=== PATIENT | female | born 1970 | race Caucasian/White ===

== ENCOUNTER 2017-10-02 00:20 | Inpatient (IN) | payer OTHER ==
[~2017-10-02] VITALS: Ht 165.1 cm; Wt 67.1 kg
[2017-10-02] VITALS (7 sets, daily range): BP systolic 107–128; BP diastolic 77–92; PULSE 85–109; RESP 16–18; TEMP 97.7–98; O2SAT 96–99
[~2017-10-02 00:20] MED LIST: HYDR12.57 PO; LEVO125T4 PO; LOSA50TA PO; NALOXONE HCL 0.4 MG/ML AMP IV PUSH PRN; OMEP20TA93 PO; VENL25TA PO
[2017-10-02] MEDS ORDERED: WATER IV ONE ×2 (02:00)
[2017-10-02] MEDS ORDERED: ACETYLCYSTEINE IV ONE ×6 (02:00→07:00)
[2017-10-02] MEDS ORDERED: WATE IV ONE ×4 (02:00→07:00)
[2017-10-02] MEDS ORDERED: DEXTROSE 5% IV ONE ×6 (02:00→07:00)
[2017-10-02] MEDS: SODIUM CHLOR 0.9% 1000 ML INJ 1,000 ML IV SCH ×3 (02:27→18:50)
[2017-10-02] MEDS ORDERED: ACETYLCYSTEINE INJ 3,750 MG in DEXTROSE 5% IN WATE 500 ML INJ 500 ML IV ONE ×2 (03:00)
[2017-10-02] MEDS ORDERED: diphenhydrAMINE HCL 50 MG/ML VIAL IV PUSH PRN (05:30)
[2017-10-02] MEDS: SODIUM CHLORIDE 0.9% FLUSH 10 ML FLUSH IV FLUSH PRN (06:12)
[2017-10-02] MEDS: SODIUM CHLORIDE 0.9% FLUSH 10 ML FLUSH IV FLUSH SCH ×2 (08:56→22:05)
--- NOTE | 2017-10-02 09:17 | HHI.HP ---
[facility] Primary Care Physician Unknown Admission Diagnosis elevated LFT's Diagnoses: (1) Abdominal pain Diagnosis: Principal (2) Elevated LFTs Diagnosis: Principal Chief Complaint: abdominal pain Travel History International Travel<30 Days: No Contact w/Intl Traveler <30 Da: No Traveled to Known Affected Are: No History of Present Illness patient is a 46 y/o female with history of gastritis, hypertension, hypothyroidism who presented to ER with abdominal pain. the pain is epigastric and moderate in intensity. pain was associated with nausea and several episodes of emesis yesterday. she says that she had some shoulder pain few weeks ago and she started to take tylenol, few tablets more or less as a regular basis, since then. she says that she tried some nexium with no significant relief. she also has a history of chonic alcohol abuse and she drinks as a daily basis. Review of Systems Constitutional: DENIES: Fever, Weight loss, Chills, Night Sweats Eyes: DENIES: Blurred vision, Diplopia, Vision loss, Double Vision Ears, nose, mouth, throat: DENIES: Tinnitus, Vertigo, Throat pain, Epistaxis Respiratory: DENIES: Apneas, Cough, Snoring, Wheezing, Hemoptysis, Sputum production, Shortness of breath Cardiovascular: DENIES: Chest pain, Palpitations, Syncope, Dyspnea on Exertion , PND, Lower Extremity Edema, Orthopnea, Claudication Gastrointestinal: COMPLAINS OF: Abdominal pain, Nausea, Vomiting, DENIES: Black stools, Bloody stools, Constipation, Diarrhea, Difficulty Swallowing, Anorexia Genitourinary: DENIES: Urinary frequency, Urgency, Hematuria, Dysuria Musculoskeletal: DENIES: Joint pain, Muscle aches, Stiffness, Joint Swelling Integumentary: DENIES: Rash Neurologic: DENIES: Abnormal gait, Headache, Localized weakness, Paresthesias, Seizures, Speech Problems, Tremor, Poor Balance Psychiatric: DENIES: Anxiety, Confusion, Mood changes, Depression, Hallucinations, Agitation, Suicidal Ideation, Homicidal Ideation, Delusions Past Family Social History Past Medical History hypothyroidism hypertension gastritis Past Surgical History gastric bypass surgery. breast implant. Reported Medications levothyroxine losartan HCTZ effexor Allergies: Coded Allergies: neomycin (Unverified Allergy, Severe, Swelling, 10/01/17) Active Ordered Medications Current Medications Sodium Chloride 1,000 ml @ 100 mls/hr Q10H IV Last administered on 10/02/17 02:27; Start 10/01/17 at 22:50 Sodium Chloride (NS Flush) 2 ml UNSCH PRN IV FLUSH FLUSH AFTER USING IV ACCESS Last administered on 10/02/17 06:12; Start 10/01/17 at 23:00 Sodium Chloride (NS Flush) 2 ml BID IV FLUSH ; Start 10/02/17 at 09:00 Naloxone HCl (Narcan Inj) 0.4 mg UNSCH PRN IV PUSH SEE LABEL COMMENTS; Start 10/01/17 at 23:00 Acetylcysteine 41169 mg/Dextrose 256 ml @ 200 mls/hr ONCE ONCE IV Last administered on 10/02/17 02:24; Start 10/02/17 at 02:00; Stop 10/02/17 at 03:16 ; Status DC Acetylcysteine 3750 mg/Dextrose 518.75 ml @ 125 mls/ hr ONCE ONCE IV Last administered on 10/02/17 03:57; Start 10/02/17 at 03:00; Stop 10/02/17 at 07:08 ; Status DC Acetylcysteine 7450 mg/Dextrose 1,037.25 ml @ 62.5 mls/ hr ONCE ONCE IV ; Start 10/02/17 at 02:00; Stop 10/02/17 at 02:00; Status DC Acetylcysteine 7450 mg/Dextrose 1,037.25 ml @ 62.5 mls/ hr ONCE ONCE IV ; Start 10/02/17 at 07:00; Stop 10/02/17 at 23:35 Diphenhydramine HCl (Benadryl Inj) 25 mg Q4H PRN IV PUSH itching Last administered on 10/02/17 06:12; Start 10/02/17 at 05:30 Family History not relevant to this presentation. Social History drinks daily. Physical Exam Vital Signs Vital Signs Date Time Temp Pulse Resp B/P (MAP) Pulse Ox O2 Delivery O2 Flow Rate FiO2 10/02/17 05:40 97.8 90 16 124/83 (97) 97 12/7/17 01:05 97.8 91 16 128/87 (098) 06 Physical Exam GENERAL: This is a well-nourished, well-developed patient, in no apparent distress. SKIN: No rashes, ecchymoses or lesions. Cool and dry. HEAD: Atraumatic. Normocephalic. No temporal or scalp tenderness. EYES: Pupils equal round and reactive. Extraocular motions intact. No scleral icterus. No injection or drainage. ENT: Nose without bleeding, purulent drainage or septal hematoma. Throat without erythema, tonsillar hypertrophy or exudate. Uvula midline. Airway patent. NECK: Trachea midline. No JVD or lymphadenopathy. Supple, nontender, no meningeal signs. CARDIOVASCULAR: Regular rate and rhythm without murmurs, gallops, or rubs. RESPIRATORY: Clear to auscultation. Breath sounds equal bilaterally. No wheezes , rales, or rhonchi. GASTROINTESTINAL: Abdomen soft, non-tender, nondistended. No hepato-splenomegaly , or palpable masses. No guarding. MUSCULOSKELETAL: Extremities without clubbing, cyanosis, or edema. No joint tenderness, effusion, or edema noted. No calf tenderness. Negative Homans sign bilaterally. NEUROLOGICAL: Awake and alert. Cranial nerves II through XII intact. Motor and sensory grossly within normal limits. Five out of 5 muscle strength in all muscle groups. Normal speech. Caprini VTE Risk Assessment Caprini VTE Risk Assessment: Mod/High Risk (score >= 2) Caprini Risk Assessment Model Point Value = 1 Point Value = 2 Point Value = 3 Point Value = 5 Age 41-60 Minor surgery BMI > 25 kg/m2 Swollen legs Varicose veins or History of unexplained or recurrent spontaneous Oral contraceptives or hormone replacement Sepsis (< 1 month) Serious lung disease, including pneumonia (< 1 month) Abnormal pulmonary function Acute myocardial infarction Congestive heart failure (< 1 month) History of inflammatory bowel disease Medical patient at bed rest Age 61-74 Arthroscopic surgery Major open surgery (> 45 min) Laparoscopic surgery (> 45 min) Malignancy Confined to bed (> 72 hours) Immobilizing plaster cast Central venous access Age >= 75 History of VTE Family history of VTE Factor V Leiden Prothrombin [id number] Lupus anticoagulant Anticardiolipin antibodies Elevated serum homocysteine Heparin-induced thrombocytopenia Other congenital or acquired thrombophilia Stroke (< 1 month) Elective arthroplasty Hip, pelvis, or leg fracture Acute spinal cord injury (< 1 month) Prophylaxis Regimen Total Risk Factor Score Risk Level Prophylaxis Regimen 0-1 Low Early ambulation 2 Moderate Order ONE of the following: *Sequential Compression Device (SCD) *Heparin 5000 units SQ BID 3-4 Higher Order ONE of the following medications: *Heparin 5000 units SQ TID *Enoxaparin/Lovenox 40 mg SQ daily (WT < 150 kg, CrCl > 30 mL/min) *Enoxaparin/Lovenox 30 mg SQ daily (WT < 150 kg, CrCl > 10-29 mL/min) *Enoxaparin/Lovenox 30 mg SQ BID (WT < 150 kg, CrCl > 30 mL/min) AND/OR *Sequential Compression Device (SCD) 5 or more Highest Order ONE of the following medications: *Heparin 5000 units SQ TID (Preferred with Epidurals) *Enoxaparin/Lovenox 40 mg SQ daily (WT < 150 kg, CrCl > 30 mL/min) *Enoxaparin/Lovenox 30 mg SQ daily (WT < 150 kg, CrCl > 10-29 mL/min) *Enoxaparin/Lovenox 30 mg SQ BID (WT < 150 kg, CrCl > 30 mL/min) AND *Sequential Compression Device (SCD) Assessment and Plan Assessment and Plan A/P - elevated LFT's/ epigastric pain received acetylcysteine- will monitor LFT's- check hepatitis panel and consult GI -hypertension; resume home meds- continue to monitor and adjust the regimen as needed. -pancytopenia; likely due to alcohol- will monitor -chronic alcohol abuse; start on CIWA protocol, multivitamin and thiamine -hypothyroidism; resume Levothyroxine Discussed Condition With the patient. Physician Certification 2 Midnight Certification Type: Admission for Inpatient Services Order for Inpatient Services The services are ordered in accordance with Medicare regulations or non- Medicare payer requirements, as applicable. In the case of services not specified as inpatient-only, they are appropriately provided as inpatient services in accordance with the 2-midnight benchmark. Estimated LOS (days): 2 days is the estimated time the patient will need to remain in the hospital, assuming treatment plan goals are met and no additional complications. Post-Hospital Plan: Home Problem Qualifiers (1) Abdominal pain: Qualified Codes: R10.13 - Epigastric pain Roxana Rock MD Oct 02, 2017 09:17
[2017-10-02] MEDS ORDERED: FLUMAZENIL 0.5 MG/5 ML VIAL IV PUSH PRN (09:30)
[2017-10-02] MEDS ORDERED: LORazepam 2 MG/ML VIAL IV PUSH PRN ×4 (09:30)
[2017-10-02] MEDS ORDERED: LORazepam 1 MG TAB PO PRN (09:30)
[2017-10-02] MEDS ORDERED: LORazepam 2 MG TAB PO PRN (09:30)
--- NOTE | 2017-10-02 10:30 | PD.CONS ---
HPI History of Present Illness This is a 46 year old who presented to the emergency department yesterday with complaints of N/V/epigastric abdominal pain. Pt reports vomiting has been constant for the three days prior to admission, but has been intermittent for the past month. Episodes worse in the morning and at night on an empty stomach. Epigastric pain has been constant for the past month, she is scheduled for an EGD with Dr. Villanueva in [place] on Oct 10 to evaluate cause of pain. Pt has known history of gastritis, has been taking Omeprazole OTC with no relief of symptoms. GI has been consulted due to patients significant elevation of liver enzymes. Pt reports she has been told a year ago that her liver enzymes were mildly elevated and that she should cut back on her drinking. Denies history of hepatocellular disease or cirrhosis. Pt reports she has been drinking 3-4 glasses a wine a night for the past three years. She has also been taking four- 500mg tablets of Tylenol every four hours for the past month for left sided shoulder pain that she has been told is due to a pinched nerve. She denies taking any herbals or supplements. Denies history of hepatitis, IV drug use, recent travel. She does report history of pancreatitis, one episode, approx 6 years ago after having gastric bypass surgery. Pt reports she has chronic diarrhea, fecal urgency after eating, and incontinence. Has noticed BRB in her stool, isolated episode, last week. Denies unintentional weight loss. (Tata Capellan) PFSH Past Medical History Hypothyroidism Hypertension Gastritis Pancreatitis ETOH abuse Past Surgical History Gastric bypass surgery Breast augmentation (Tata Capellan) Coded Allergies: neomycin (Unverified Allergy, Severe, Swelling, 10/01/17) Family History not relevant to this presentation. Social History 3-4 glasses of white wine daily for the past 3 years Quit smoking a week ago, was smoking E-cigarettes Denies illicit drug use (Tata Capellan) Review of Systems Gastrointestinal: COMPLAINS OF: Abdominal pain, Bloody stools, Diarrhea, Nausea , Vomiting, Swelling of Abdomen, DENIES: Black stools, Constipation, Heartburn, Hematemesis (Tata Capellan) GI Exam Vitals I&O Vital Signs Date Time Temp Pulse Resp B/P (MAP) Pulse Ox O2 Delivery O2 Flow Rate FiO2 10/02/17 08:00 97.7 109 18 122/83 (96) 99 10/02/17 05:40 97.8 90 16 124/83 (97) 97 10/02/17 01:05 97.8 91 16 128/87 (101) 97 I/O 10/01/17 10/01/17 10/01/17 10/02/17 10/02/17 10/02/17 07:00 15:00 23:00 07:00 15:00 23:00 Intake Total 250 ml Balance 250 ml Intake IV Total 250 ml Physical Examination HEENT: Normocephalic; atraumatic; no jaundice. CHEST: CTA CARDIAC: RRR ABDOMEN: Soft, nondistended, epigastric tenderness; bowel sounds active x 4. EXTREMITIES: No clubbing, cyanosis, or edema. SKIN: Normal; no rash; no jaundice. HELMET COVERER: No focal deficits; alert and oriented times three. (Tata Capellan) Assessment and Plan Plan Assessment Elevated LFTs- likely secondary to ETOH abuse and acetaminophen toxicity- CT abdomen/pelvis W/IV contrast (10/01) --> Markedly enlarged fatty liver. Tiny 3mm upper pole left renal cyst. No acute inflammatory process. ALT-625 AST-1192 Alk phos-403 Tbili-1.4- given history and labs would suspect acute hepatitis related to ETOH and acetaminophen use- pt receiving Acetylcysteine drip s/p bolus, repeat labs are pending. Ammonia-57 PT 10.6. May consider steroids if repeat labs not trending down. Will order liver work up to rule out other causes. Lactulose. Epigastric pain- History of gastritis- Plan for EGD tomorrow. PPI Diarrhea- chronic, with fecal urgency and incontinence- BRB in stool, one episode last week. Stool studies. Colonoscopy tomorrow. Plan - Continue Acetylcysteine - Lactulose 30mL BID - EGD/colon tomorrow - Obtain consents - Clear liquid diet today - NPO after MN - GoLYTELY prep - Monitor labs - Supportive care - Further recommendations to follow based on results of above Pt seen and examined by myself and Dr. Izquierdo and this note is written on his behalf (Tata Capellan) Physician Comments Seen and examined with ELAYNE, liver ward ordered. Egd/colonoscopy planned for tomorrow. Will follow, thank you (Mildred Izquierdo MD) Tata Capellan Oct 02, 2017 10:30 Mildred Izquierdo MD Oct 02, 2017 17:07
[2017-10-02 10:35] LABS: AUTOMATED NEUTROPHIL # 1.4 TH/MM3 (1.8-7.7); BASOPHIL % 1.3 % (0.0-2.0); EOSINOPHIL % 0.7 % (0.0-4.0); HEMATOCRIT 28.6 % (35.0-46.0); LYMPH % 30.3 % (9.0-44.0); LYMPHOCYTE # 0.7 TH/MM3 (1.0-4.8); MEAN CELL VOLUME 98.7 FL (80.0-100.0); MEAN CORPUSCULAR HEMOGLOBIN 33.5 PG (27.0-34.0); MEAN CORPUSCULAR HGB CONC 33.9 % (32.0-36.0); MONO % 9.1 % (0.0-8.0); NEUT % 58.6 % (16.0-70.0); PLATELET COUNT 76 TH/MM3 (150-450); RED BLOOD COUNT 2.89 MIL/MM3 (4.00-5.30); WHITE BLOOD COUNT 2.4 TH/MM3 (4.0-11.0)
[2017-10-02 10:37] LABS: INTERNATIONAL NORMALIZED RATIO 1.1 RATIO; PROTHROMBIN TIME - PATIENT 11.6 SEC (9.8-11.6)
[2017-10-02 10:45] LABS: HEMO FLAGS AUTO DIFF
[2017-10-02 11:02] LABS: ALT (GPT) 505 U/L (10-53); ANION GAP 9 MEQ/L (5-15); AST (GOT) 768 U/L (15-37); BLOOD UREA NITROGEN 8 MG/DL (7-18); CHLORIDE 102 MEQ/L (98-107); GLOMERULAR FILTRATION RATE 52 ML/MIN (>89); POTASSIUM 3.5 MEQ/L (3.5-5.1); SODIUM (NA) 139 MEQ/L (136-145)
[2017-10-02 11:05] LABS: ALKALINE PHOSPHATASE 334 U/L (45-117); TOTAL BILIRUBIN ADULT 1.2 MG/DL (0.2-1.0)
[2017-10-02 11:49] LABS: SCAN/DIFF AUTO DIFF CONFIRMED
[2017-10-02] MEDS ORDERED: ALUMINUM/MAGNESIUM/SIMETH 30 ML CUP PO PRN (14:45)
[2017-10-02] MEDS ORDERED: PEG (High)/E-LYTE SOLN 4000 ML BTL PO ONE (16:00)
[2017-10-02 19:40] LABS: TRANSFERRIN IRON PROFILE 152 MG/DL (200-360)
[2017-10-02 19:49] LABS: C. DIFF EPI 027 PRESUMPTIVE NEGATIVE (NEGATIVE)
[2017-10-02 19:54] LABS: FERRITIN 2830 NG/ML (8-252)
[2017-10-03] VITALS: BP 117/81; PULSE 91; RESP 16; TEMP 97.9; O2SAT 99
[2017-10-03] MEDS: LEVOTHYROXINE SODIUM 125 MCG TAB PO SCH (02:45)
[2017-10-03 04:00] VITALS: BP 121/75; PULSE 81; RESP 18; TEMP 97.8; O2SAT 99
[2017-10-03] MEDS ORDERED: MORPHINE SULFATE 2 MG/ML INJ IV PUSH PRN (04:30)
[2017-10-03] MEDS: SODIUM CHLOR 0.9% 1000 ML INJ 1,000 ML IV SCH ×3 (04:43→23:53)
[2017-10-03 08:00] VITALS: BP 115/79; PULSE 86; RESP 18; TEMP 98.2; O2SAT 97
--- NOTE | 2017-10-03 08:10 | HHI.PR ---
Subjective Remarks in no acute distress. abdominal pain is better. d/w the RN and no acute issues over night. awaiting endoscopy. Objective Vitals Vital Signs Date Time Temp Pulse Resp B/P (MAP) Pulse Ox O2 Delivery O2 Flow Rate FiO2 10/03/17 04:00 97.8 81 18 121/75 (90) 99 10/03/17 00:00 97.9 91 16 117/81 (93) 99 10/02/17 20:00 98.0 97 18 112/92 (99) 99 10/02/17 16:00 97.9 85 18 107/81 (90) 99 10/02/17 12:00 98.0 86 18 109/77 (88) 96 10/02/17 08:50 85 I/O 10/02/17 10/02/17 10/02/17 10/03/17 10/03/17 10/03/17 07:00 15:00 23:00 07:00 15:00 23:00 Intake Total 250 ml 1200 ml 960 ml 0 ml Balance 250 ml 1200 ml 960 ml 0 ml Intake Oral 1200 ml 960 ml 0 ml IV Total 250 ml # Voids 6 2 1 # Bowel Movements 6 6 2 Result Diagram: 10/02/17 1018 10/02/17 1018 Objective Remarks GENERAL: This is a well-nourished, well-developed patient, in no apparent distress. CARDIOVASCULAR: Regular rate and regular rhythm without murmurs, gallops, or rubs. RESPIRATORY: Clear to auscultation. Breath sounds equal bilaterally. No wheezes , rales, or rhonchi. GASTROINTESTINAL: Abdomen soft, non-tender, nondistended. Normal, active bowel sounds MUSCULOSKELETAL: Extremities without clubbing, cyanosis, or edema. NEURO: Alert & Oriented x4 to person, place, time, situation. Moves all ext x4 Medications and IVs Current Medications Sodium Chloride 1,000 ml @ 100 mls/hr Q10H IV Last administered on 10/02/17 02:27; Start 10/01/17 at 22:50 Sodium Chloride (NS Flush) 2 ml UNSCH PRN IV FLUSH FLUSH AFTER USING IV ACCESS Last administered on 10/02/17 06:12; Start 10/01/17 at 23:00 Sodium Chloride (NS Flush) 2 ml BID IV FLUSH ; Start 10/02/17 at 09:00 Naloxone HCl (Narcan Inj) 0.4 mg UNSCH PRN IV PUSH SEE LABEL COMMENTS; Start 10/01/17 at 23:00 Acetylcysteine 44121 mg/Dextrose 256 ml @ 200 mls/hr ONCE ONCE IV Last administered on 10/02/17 02:24; Start 10/02/17 at 02:00; Stop 10/02/17 at 03:16 ; Status DC Acetylcysteine 3750 mg/Dextrose 518.75 ml @ 125 mls/ hr ONCE ONCE IV Last administered on 10/02/17 03:57; Start 10/02/17 at 03:00; Stop 10/02/17 at 07:08 ; Status DC Acetylcysteine 7450 mg/Dextrose 1,037.25 ml @ 62.5 mls/ hr ONCE ONCE IV ; Start 10/02/17 at 02:00; Stop 10/02/17 at 02:00; Status DC Acetylcysteine 7450 mg/Dextrose 1,037.25 ml @ 62.5 mls/ hr ONCE ONCE IV Last administered on 10/02/17 08:55; Start 10/02/17 at 07:00; Stop 10/02/17 at 23:35 ; Status DC Diphenhydramine HCl (Benadryl Inj) 25 mg Q4H PRN IV PUSH itching Last administered on 10/02/17 06:12; Start 10/02/17 at 05:30 Hydrochlorothiazide (Microzide) 12.5 mg DAILY PO ; Start 10/03/17 at 09:00 Levothyroxine Sodium (Synthroid) 125 mcg DAILY@0600 PO ; Start 10/03/17 at 06:00 Losartan Potassium (Cozaar) 50 mg DAILY PO ; Start 10/03/17 at 09:00 Flumazenil (Romazicon Inj) 0.2 mg Q1M PRN IV PUSH SEE LABEL COMMENTS; Start at 09:30 Lorazepam (Ativan) 1 mg Q4H PRN PO CIWA 8 - 10; Start 10/02/17 at 09:30 Lorazepam (Ativan Inj) 1 mg Q4H PRN IV PUSH CIWA 8 - 10; Start 10/02/17 at 09: 30 Lorazepam (Ativan) 2 mg Q2H PRN PO CIWA 11-14; Start 10/02/17 at 09:30 Lorazepam (Ativan Inj) 2 mg Q2H PRN IV PUSH CIWA 11-14; Start 10/02/17 at 09:30 Lorazepam (Ativan Inj) 2 mg Q1H PRN IV PUSH CIWA 15-20; Start 10/02/17 at 09:30 Lorazepam (Ativan Inj) 2 mg Q15M PRN IV PUSH CIWA > 20; Start 10/02/17 at 09:30 Multivitamins (Theragran) 1 tab DAILY PO ; Start 10/03/17 at 09:00 Thiamine HCl (Vitamin B1) 100 mg DAILY PO ; Start 10/03/17 at 09:00 Polyethylene Glycol/ Electrolytes (Colyte Liq) 4,000 ml ONCE ONCE PO Last administered on 10/02/17 15:53; Start 10/02/17 at 16:00; Stop 10/02/17 at 16:01 ; Status DC Pantoprazole Sodium (Protonix) 40 mg DAILY PO ; Start 10/03/17 at 09:00 Lactulose (Lactulose Liq) 30 ml DAILY PO ; Start 10/03/17 at 09:00 Al Hydrox/Mg Hydrox/Simethicone (Mag-Al Plus Susp Liq) 30 ml Q6H PRN PO DYSPEPSIA Last administered on 10/02/17 15:35; Start 10/02/17 at 14:45 Morphine Sulfate (Morphine Inj) 2 mg Q3H PRN IV PUSH pain >5 Last administered on 10/03/17 04:41; Start 10/03/17 at 04:30 A/P Problem List: (1) Abdominal pain ICD Code: R10.9 - Unspecified abdominal pain (2) Elevated LFTs ICD Code: R79.89 - Other specified abnormal findings of blood chemistry Assessment and Plan A/P - elevated LFT's/ epigastric pain received acetylcysteine- will monitor LFT's- hepatitis panel negative- GI consult appreciated and plan for endoscopy today. -hypertension; resumed home meds- continue to monitor and adjust the regimen as needed. -pancytopenia; likely due to alcohol- will monitor -chronic alcohol abuse; started on CIWA protocol, multivitamin and thiamine -hypothyroidism; resume Levothyroxine Discharge Planning pending GI recommendations. Problem Qualifiers (1) Abdominal pain: Qualified Codes: R10.13 - Epigastric pain Roxana Rock MD Oct 03, 2017 08:10
[2017-10-03] MEDS ORDERED: THERTAB15 PO (08:12)
[2017-10-03] MEDS ORDERED: THIA100 PO (08:12)
[2017-10-03 08:20] LABS: ALT (GPT) 398 U/L (10-53); ANION GAP 8 MEQ/L (5-15); AST (GOT) 509 U/L (15-37); BICARBONATE 26.7 MEQ/L (21.0-32.0); BLOOD UREA NITROGEN 4 MG/DL (7-18); CHLORIDE 109 MEQ/L (98-107); GLOMERULAR FILTRATION RATE 76 ML/MIN (>89); POTASSIUM 3.4 MEQ/L (3.5-5.1); SODIUM (NA) 144 MEQ/L (136-145)
[2017-10-03 08:23] LABS: ALKALINE PHOSPHATASE 284 U/L (45-117); TOTAL BILIRUBIN ADULT 1.1 MG/DL (0.2-1.0)
[2017-10-03] MEDS: LACTULOSE SYRUP 20 GM/30 ML CUP PO SCH (09:00)
[2017-10-03] MEDS: MULTIVITAMIN TAB PO SCH (09:00)
[2017-10-03] MEDS: THIAMINE HCL 100 MG TAB PO SCH (09:00)
[2017-10-03] MEDS: PANTOPRAZOLE SOD 40 MG DELAYED RELEASE TAB PO SCH (09:00)
[2017-10-03] MEDS: HYDROCHLOROTHIAZIDE 12.5 MG CAP PO SCH (09:00)
[2017-10-03] MEDS: LOSARTAN 50 MG TAB PO SCH (09:00)
[2017-10-03] MEDS: SODIUM CHLORIDE 0.9% FLUSH 10 ML FLUSH IV FLUSH SCH ×2 (09:00→20:00)
[2017-10-03 12:00] VITALS: BP 92/59; PULSE 76; RESP 18; TEMP 96.7; O2SAT 98
[2017-10-03] MEDS ORDERED: SODIUM CHLORID 0.9% 500 ML IV PRN (13:00)
[2017-10-03] MEDS ORDERED: CHLORHEXIDINE GLUCONATE 2 % 1 PACK (2 CLOTHS) TOPICAL PRN (13:00)
[2017-10-03] MEDS ORDERED: LACTATED RINGER'S 1000 ML IV PRN (13:00)
[2017-10-03] MEDS ORDERED: INSULIN HUMAN REGULAR 1,000 UNITS/10 ML VIAL SQ PRN (13:00)
[2017-10-03] MEDS ORDERED: METOPROLOL TARTRATE 25 MG TAB PO PRN (13:00)
[2017-10-03] MEDS ORDERED: POVIDONE IODINE 5% (ANTISEPSIS KIT) 4 APPLICATIONS EACH NARE PRN (13:00)
--- NOTE | 2017-10-03 13:37 | GIPROC ---
[facility] [address] [facility]. [facility], [address] EGD PROCEDURE REPORT EXAM DATE: 10/03/2017 PATIENT NAME: Karime Klein MR #: [id number] BIRTHDATE: 1970 ATTENDING: Mildred Izquierdo MD ORDER #: [id number] [employer] TEAMMATE: Rosalina Villegas and Linh Nolan STATUS: inpatient INDICATIONS: The patient is a 46 yr old female here for an EGD due to epigastric abdominal pain PROCEDURE PERFORMED: EGD, diagnostic MEDICATIONS: Per Anesthesia and None. TOPICAL ANESTHETIC: CONSENT: The patient understands the risks and benefits of the procedure and understands that these risks include, but are not limited to: sedation, allergic reaction, infection, perforation and/or bleeding. Alternative means of evaluation and treatment include, among others: physical exam, x-rays, and/or surgical intervention. The patient elects to proceed with this endoscopic procedure. medical equipment was checked for proper function. Hand hygiene and appropriate measures for infection prevention was taken. After the risks, benefits and alternatives of the procedure were thoroughly explained, Informed consent was verified, confirmed and timeout was successfully executed by the treatment team. The patient was anesthetized with topical anesthesia and the Pentax [id number] endoscope was introduced through the mouth and advanced to the second portion of the duodenum. Retroflexed views revealed no abnormalities The gastroscope was then slowly withdrawn and removed. ESOPHAGUS: The mucosa of the esophagus appeared normal. STOMACH: Gastric bypass surgery, o/w normal. DUODENUM: The duodenal mucosa appeared normal in the 2nd part of the duodenum. ADVERSE EVENTS: There were no complications. IMPRESSIONS: 1. The esophagus appeared normal 2. Gastric bypass surgery, o/w normal 3. Normal duodenal mucosa in the 2nd part of the duodenum 4. Retroflexed views revealed no abnormalities RECOMMENDATIONS: Avoid NSAIDS PATIENT CONDITION: stable DISPOSITION: Inpatient REPEAT EXAM: Return as needed for EGD Mildred Izquierdo MD eSigned: Mildred Izquierdo MD 10/03/2017 1:36 PM cc:
--- NOTE | 2017-10-03 13:39 | GIPROC ---
[facility] [address] [facility]. [facility], [address] COLONOSCOPY PROCEDURE REPORT EXAM DATE: 10/03/2017 PATIENT NAME: Karime Klein MR #: [id number] BIRTHDATE: 1970 ENDOSCOPIST: Mildred Izquierdo MD ORDER #: [id number] [employer]OM CONVEYOR OPERATOR: Rosalina Villegas and Linh Nolan STATUS: inpatient INDICATIONS: The patient is a 46 yr old female here for a colonoscopy due to abdominal pain PROCEDURE PERFORMED: Colonoscopy, incomplete MEDICATIONS: Per Anesthesia and None. PREP QUALITY: good PREP TYPE:GoLytely ESTIMATED BLOOD LOSS: None CONSENT: The patient understands the risks and benefits of the procedure and understands that these risks include, but are not limited to: sedation, allergic reaction, infection, perforation and/or bleeding. Alternative means of evaluation and treatment include, among others: physical exam, x-rays, and/or surgical intervention. The patient elects to proceed with this endoscopic procedure. medical equipment was checked for proper function. Hand hygiene and appropriate measures for infection prevention was taken. After the risks, benefits and alternatives of the procedure were thoroughly explained, Informed consent was verified, confirmed and timeout was successfully executed by the treatment team. A digital exam The Pentax [id number] endoscope was introduced through the anus and advanced to the sigmoid colon. The instrument was then slowly withdrawn as the colon was fully examined. COLON FINDINGS: Incomplete due to sigificant tortuosity of colon. There was mild diverticulosis noted in the sigmoid colon with associated angulation and tortuosity. No bleeding was noted from the diverticulosis. Retroflexed views revealed internal hemorrhoids and Retroflexed views revealed medium internal hemorrhoids The scope was then completely withdrawn from the patient and the procedure terminated. ADVERSE EVENTS: There were no complications. IMPRESSIONS: 1. Incomplete due to sigificant tortuosity of colon 2. There was mild diverticulosis noted in the sigmoid colon 3. Retroflexed views revealed internal hemorrhoids 4. Retroflexed views revealed medium internal hemorrhoids RECOMMENDATIONS: 1. Benefiber 2 tsp daily 2. Continue surveillance 3. Yearly hemoccult 4. Xray for Barium enema RECALL: Return 3 years Colonoscopy Mildred Izquierdo MD eSigned: Mildred Izquierdo MD 10/03/2017 1:39 PM cc:
[2017-10-03] MEDS ORDERED: MAGNESIUM CITRATE SOLN 300 ML BTL PO ONE ×2 (14:45→18:00)
[2017-10-03 15:13] LABS: AUTOMATED NEUTROPHIL # 1.1 TH/MM3 (1.8-7.7); BASOPHIL % 0.6 % (0.0-2.0); EOSINOPHIL % 0.8 % (0.0-4.0); HEMATOCRIT 29.5 % (35.0-46.0); HEMO FLAGS DIFF FINAL; LYMPH % 34.5 % (9.0-44.0); LYMPHOCYTE # 0.7 TH/MM3 (1.0-4.8); MEAN CORPUSCULAR HEMOGLOBIN 33.3 PG (27.0-34.0); MEAN CORPUSCULAR HGB CONC 33.3 % (32.0-36.0); NEUT % 56.1 % (16.0-70.0); PLATELET COUNT 105 TH/MM3 (150-450); RED BLOOD COUNT 2.95 MIL/MM3 (4.00-5.30); RED CELL DISTRIBUTION WIDTH 14.4 % (11.6-17.2)
[2017-10-03 16:00] VITALS: BP 116/80; PULSE 87; RESP 18; TEMP 98.4; O2SAT 100
--- NOTE | 2017-10-03 16:41 | RADRPT ---
EXAM DATE/TIME: 10/03/2017 15:01 [facility] COMPARISON: CT ABDOMEN & PELVIS W CONTRAST, October 01, 2017, 20:45. INDICATIONS : Anemia. Recent incomplete colonoscopy. Colon cancer screening. FLUORO TIME: 4.0 minutes IMAGE COUNT: CONTRAST: 1. Polibar ACB Barium Sulfate (96% w/w) MEDICAL HISTORY : diarrhea x 2 mos, nausea, vomiting SURGICAL HISTORY : gastric bypass, tummy tuck, breast implants ENCOUNTER: Initial ACUITY: 2 months PAIN SCORE: 0/10 LOCATION: Bilateral abdomen FINDINGS: A balloon tip catheter was inserted into the rectum, and air and barium was instilled under fluorosco pic control. Barium was instilled in a retrograde fashion until reaching the right colon. I was unable to fill the cecum with contrast secondary to air. The contrast was then drained and the colon was insufflated wi th room air. Multiple images were obtained and no polyp or mass is identified. Again, it is not clear if the cecum is fully visualized. There is no diverticulosis. No reflux of contrast into the termina l ileum is seen and appendix is not visualized. CONCLUSION: 1. No polyp or mass is identified within the colon. 2. Cecum is not optimally visualized but no definite abnormality is seen in this area. Allan Bills MD on October 03, 2017 at 16:34 Board Certified Radiologist. This report was verified electronically.
[2017-10-03] MEDS: BISACODYL EC 5 MG TABEC PO SCH ×2 (17:53→19:58)
[2017-10-03 20:00] VITALS: BP 120/74; PULSE 101; RESP 18; TEMP 97.8; O2SAT 97
[2017-10-04] VITALS: BP 113/84; PULSE 89; RESP 16; TEMP 98; O2SAT 99
[2017-10-04 04:00] VITALS: BP 90/62; PULSE 96; RESP 16; TEMP 97.5; O2SAT 95
[2017-10-04] MEDS: LEVOTHYROXINE SODIUM 125 MCG TAB PO SCH (04:52)
[2017-10-04 07:18] LABS: AUTOMATED NEUTROPHIL # 1.2 TH/MM3 (1.8-7.7); BASOPHIL % 0.6 % (0.0-2.0); EOSINOPHIL % 0.6 % (0.0-4.0); HEMATOCRIT 24.6 % (35.0-46.0); LYMPH % 38.3 % (9.0-44.0); LYMPHOCYTE # 0.9 TH/MM3 (1.0-4.8); MEAN CELL VOLUME 101.4 FL (80.0-100.0); MEAN CORPUSCULAR HEMOGLOBIN 34.3 PG (27.0-34.0); MEAN CORPUSCULAR HGB CONC 33.8 % (32.0-36.0); MONO % 8.8 % (0.0-8.0); NEUT % 51.7 % (16.0-70.0); PLATELET COUNT 91 TH/MM3 (150-450); RED BLOOD COUNT 2.43 MIL/MM3 (4.00-5.30); RED CELL DISTRIBUTION WIDTH 14.4 % (11.6-17.2); WHITE BLOOD COUNT 2.2 TH/MM3 (4.0-11.0)
[2017-10-04 07:27] LABS: HEMO FLAGS AUTO DIFF
[2017-10-04 07:49] LABS: BICARBONATE 25.8 MEQ/L (21.0-32.0); CALCIUM-PROTEIN CORRECTED 7.9 MG/DL (8.5-10.1); POTASSIUM 3.5 MEQ/L (3.5-5.1)
[2017-10-04 08:00] VITALS: BP 113/71; PULSE 87; RESP 18; TEMP 97; O2SAT 97
[2017-10-04 08:24] LABS: PLATELET ESTIMATE SMEAR LOW (NORMAL); PLATELET MORPHOLOGY NORMAL (NORMAL); SCAN/DIFF AUTO DIFF CONFIRMED; TARGET CELLS 1+ (NORMAL)
[2017-10-04] MEDS: MULTIVITAMIN TAB PO SCH (08:35)
[2017-10-04] MEDS: THIAMINE HCL 100 MG TAB PO SCH (08:35)
[2017-10-04] MEDS: LACTULOSE SYRUP 20 GM/30 ML CUP PO SCH (08:35)
[2017-10-04] MEDS: PANTOPRAZOLE SOD 40 MG DELAYED RELEASE TAB PO SCH (08:35)
[2017-10-04] MEDS: LOSARTAN 50 MG TAB PO SCH (08:37)
[2017-10-04] MEDS: SODIUM CHLORIDE 0.9% FLUSH 10 ML FLUSH IV FLUSH SCH (08:37)
[2017-10-04] MEDS: HYDROCHLOROTHIAZIDE 12.5 MG CAP PO SCH (08:37)
--- NOTE | 2017-10-04 10:42 | HHI.PR ---
Subjective Remarks in no acute distress. has mild abdominal pain. no nausea or vomiting. Objective Vitals Vital Signs Date Time Temp Pulse Resp B/P (MAP) Pulse Ox O2 Delivery O2 Flow Rate FiO2 10/04/17 08:00 97.0 87 18 113/71 (85) 97 10/04/17 04:00 97.5 96 16 90/62 (71) 95 10/04/17 00:00 98.0 89 16 113/84 (94) 99 10/03/17 20:00 97.8 101 18 120/74 (89) 97 10/03/17 16:00 98.4 87 18 116/80 (92) 100 10/03/17 13:44 98.3 87 20 113/73 (86) 100 10/03/17 12:00 96.7 76 18 92/59 (70) 98 I/O 10/03/17 10/03/17 10/03/17 10/04/17 10/04/17 10/04/17 07:00 15:00 23:00 07:00 15:00 23:00 Intake Total 0 ml 0 ml 870 ml 500 ml Balance 0 ml 0 ml 870 ml 500 ml Intake Oral 0 ml 0 ml 720 ml 500 ml Other 150 ml # Voids 1 5 2 1 # Bowel Movements 2 0 Result Diagram: 10/04/1724 10/04/1724 Imaging Last Impressions Barium Enema w/Air Contrast 10/03/17 0000 Signed Impressions: Service Date/Time: Tuesday, October 03, 2017 15:01 - CONCLUSION: 1. No polyp or mass is identified within the colon. 2. Cecum is not optimally visualized but no definite abnormality is seen in this area. Allan Bills MD Objective Remarks GENERAL: This is a well-nourished, well-developed patient, in no apparent distress. CARDIOVASCULAR: Regular rate and regular rhythm without murmurs, gallops, or rubs. RESPIRATORY: Clear to auscultation. Breath sounds equal bilaterally. No wheezes , rales, or rhonchi. GASTROINTESTINAL: Abdomen soft, non-tender, nondistended. Normal, active bowel sounds MUSCULOSKELETAL: Extremities without clubbing, cyanosis, or edema. NEURO: Alert & Oriented x4 to person, place, time, situation. Moves all ext x4 Procedures EGD Medications and IVs Current Medications Sodium Chloride 1,000 ml @ 100 mls/hr Q10H IV Last administered on 10/02/17 02:27; Start 10/01/17 at 22:50 Sodium Chloride (NS Flush) 2 ml UNSCH PRN IV FLUSH FLUSH AFTER USING IV ACCESS Last administered on 10/02/17 06:12; Start 10/01/17 at 23:00 Sodium Chloride (NS Flush) 2 ml BID IV FLUSH Last administered on 10/04/17 08: 37; Start 10/02/17 at 09:00 Naloxone HCl (Narcan Inj) 0.4 mg UNSCH PRN IV PUSH SEE LABEL COMMENTS; Start 10/01/17 at 23:00 Acetylcysteine 94438 mg/Dextrose 256 ml @ 200 mls/hr ONCE ONCE IV Last administered on 10/02/17 02:24; Start 10/02/17 at 02:00; Stop 10/02/17 at 03:16 ; Status DC Acetylcysteine 3750 mg/Dextrose 518.75 ml @ 125 mls/ hr ONCE ONCE IV Last administered on 10/02/17 03:57; Start 10/02/17 at 03:00; Stop 10/02/17 at 07:08 ; Status DC Acetylcysteine 7450 mg/Dextrose 1,037.25 ml @ 62.5 mls/ hr ONCE ONCE IV ; Start 10/02/17 at 02:00; Stop 10/02/17 at 02:00; Status DC Acetylcysteine 7450 mg/Dextrose 1,037.25 ml @ 62.5 mls/ hr ONCE ONCE IV Last administered on 10/02/17 08:55; Start 10/02/17 at 07:00; Stop 10/02/17 at 23:35 ; Status DC Diphenhydramine HCl (Benadryl Inj) 25 mg Q4H PRN IV PUSH itching Last administered on 10/02/17 06:12; Start 10/02/17 at 05:30 Hydrochlorothiazide (Microzide) 12.5 mg DAILY PO ; Start 10/03/17 at 09:00 Levothyroxine Sodium (Synthroid) 125 mcg DAILY@0600 PO Last administered on 04:52; Start 10/03/17 at 06:00 Losartan Potassium (Cozaar) 50 mg DAILY PO ; Start 10/03/17 at 09:00 Flumazenil (Romazicon Inj) 0.2 mg Q1M PRN IV PUSH SEE LABEL COMMENTS; Start at 09:30 Lorazepam (Ativan) 1 mg Q4H PRN PO CIWA 8 - 10; Start 10/02/17 at 09:30 Lorazepam (Ativan Inj) 1 mg Q4H PRN IV PUSH CIWA 8 - 10; Start 10/02/17 at 09: 30 Lorazepam (Ativan) 2 mg Q2H PRN PO CIWA 11-14; Start 10/02/17 at 09:30 Lorazepam (Ativan Inj) 2 mg Q2H PRN IV PUSH CIWA 11-14; Start 10/02/17 at 09:30 Lorazepam (Ativan Inj) 2 mg Q1H PRN IV PUSH CIWA 15-20; Start 10/02/17 at 09:30 Lorazepam (Ativan Inj) 2 mg Q15M PRN IV PUSH CIWA > 20; Start 10/02/17 at 09:30 Multivitamins (Theragran) 1 tab DAILY PO Last administered on 10/04/17 08:35; Start 10/03/17 at 09:00 Thiamine HCl (Vitamin B1) 100 mg DAILY PO Last administered on 10/04/17 08:35 ; Start 10/03/17 at 09:00 Polyethylene Glycol/ Electrolytes (Colyte Liq) 4,000 ml ONCE ONCE PO Last administered on 10/02/17 15:53; Start 10/02/17 at 16:00; Stop 10/02/17 at 16:01 ; Status DC Pantoprazole Sodium (Protonix) 40 mg DAILY PO Last administered on 10/04/17 08 :35; Start 10/03/17 at 09:00 Lactulose (Lactulose Liq) 30 ml DAILY PO Last administered on 10/04/17 08:35; Start 10/03/17 at 09:00 Al Hydrox/Mg Hydrox/Simethicone (Mag-Al Plus Susp Liq) 30 ml Q6H PRN PO DYSPEPSIA Last administered on 10/02/17 15:35; Start 10/02/17 at 14:45 Morphine Sulfate (Morphine Inj) 2 mg Q3H PRN IV PUSH pain >5 Last administered on 12/8/17at 04:41; Start 10/03/17 at 04:30 Lactated Ringer's 1,000 ml @ 30 mls/hr Q24H PRN IV SEE LABEL COMMENTS; Start 10/03/17 at 13:00; Stop 10/06/17 at 12:59 Sodium Chloride 500 ml @ 30 mls/hr [id number] PRN IV SEE LABEL COMMENTS; Start at 13:00; Stop 10/06/17 at 12:59 Metoprolol Tartrate (Lopressor) 25 mg POT FIRER PRN PO SEE LABEL COMMENTS; Start 10/03/17 at 13:00; Stop 10/06/17 at 12:59 Povidone Iodine (Betadine 5% Antisepsis Kit) 1 applic POT FIRER PRN EACH NARE SEE LABEL COMMENTS; Start 10/03/17 at 13:00; Stop 10/06/17 at 12:59 Chlorhexidine Gluconate (Chlorhexidine 2% Cloth) 3 pack POT FIRER PRN TOPICAL SEE LABEL COMMENTS; Start 10/03/17 at 13:00; Stop 10/06/17 at 12:59 Insulin Human Regular (NovoLIN R INJ) See Protocol Table ... POT FIRER PRN SQ SEE PROTOCOL TABLE; Start 10/03/17 at 13:00; Stop 10/06/17 at 12:59 Magnesium Citrate (Citroma Liq) 300 ml ONCE ONCE PO ; Start 10/03/17 at 14:45; Stop 10/03/17 at 14:46; Status DC Magnesium Citrate (Citroma Liq) 300 ml ONCE ONCE PO ; Start 10/03/17 at 18:00; Stop 10/03/17 at 18:01; Status DC Bisacodyl (Dulcolax Ec) 10 mg DAILY@18,21 PO ; Start 10/03/17 at 18:00; Stop at 21:01; Status DC A/P Problem List: (1) Abdominal pain ICD Code: R10.9 - Unspecified abdominal pain (2) Elevated LFTs ICD Code: R79.89 - Other specified abnormal findings of blood chemistry Assessment and Plan A/P - elevated LFT's/ epigastric pain received acetylcysteine- LFT's trending down- hepatitis panel negative- s/p EGD with The esophagus appeared normal, Gastric bypass surgery, o/w normal , Normal duodenal mucosa in the 2nd part of the duodenum GI following. -hypertension; f/u as outpatient. -pancytopenia; likely due to alcohol- will monitor- patient was advised to stop drinking and have a f/u with her PCP- will repeat CBC next week as outpatient. ( d/w the patient in detail). -chronic alcohol abuse; started on CIWA protocol, multivitamin and thiamine advised on alcohol cessation. -hypothyroidism; resumed Levothyroxine Discharge Planning dc home within the next 24 hrs if stable and cleared by GI. f/u; pcp and GI. see med list. d/w the patient and RN. Problem Qualifiers (1) Abdominal pain: Qualified Codes: R10.13 - Epigastric pain Roxana Rock MD Oct 04, 2017 10:42
[2017-10-04] MEDS: SODIUM CHLOR 0.9% 1000 ML INJ 1,000 ML IV SCH (10:50)
[2017-10-04] MEDS ORDERED: TRAM50 PO (10:50)
[2017-10-04 12:00] VITALS: BP 117/84; PULSE 99; RESP 18; TEMP 97.8; O2SAT 99
[2017-10-04 12:26] LABS: HEMATOCRIT 25.6 % (35.0-46.0)
--- NOTE | 2017-10-04 12:26 | HHI.DS ---
Discharge Summary Admission Date Oct 02, 2017 at 00:30 Discharge Date: Oct 04, 2017 Admitting Diagnosis elevated LFT's (1) Abdominal pain ICD Code: R10.9 - Unspecified abdominal pain Diagnosis: Principal (2) Elevated LFTs ICD Code: R79.89 - Other specified abnormal findings of blood chemistry Diagnosis: Principal Procedures EGD Brief History - From Admission patient is a 46 y/o female with history of gastritis, hypertension, hypothyroidism who presented to ER with abdominal pain. the pain is epigastric and moderate in intensity. pain was associated with nausea and several episodes of emesis yesterday. she says that she had some shoulder pain few weeks ago and she started to take tylenol, few tablets more or less as a regular basis, since then. she says that she tried some nexium with no significant relief. she also has a history of chonic alcohol abuse and she drinks as a daily basis. CBC/BMP: 10/04/17 0624 10/04/17 0624 Significant Findings Laboratory Tests Test 10/02/17 10:18 10/02/17 12:00 10/02/17 18:41 10/03/17 07:40 White Blood Count 2.4 TH/MM3 (4.0-11.0) Red Blood Count 2.89 MIL/MM3 (4.00-5.30) Hemoglobin 9.7 GM/DL (11.6-15.3) Hematocrit 28.6 % (35.0-46.0) Platelet Count 76 TH/MM3 (150-450) Monocytes (%) (Auto) 9.1 % (0.0-8.0) Neutrophils # (Auto) 1.4 TH/MM3 (1.8-7.7) Lymphocytes # (Auto) 0.7 TH/MM3 (1.0-4.8) Creatinine 1.14 MG/DL (0.50-1.00) Total Protein 6.2 GM/DL (6.4-8.2) 5.6 GM/DL (6.4-8.2) Albumin 2.9 GM/DL (3.4-5.0) 2.6 GM/DL (3.4-5.0) Calcium Level 8.0 MG/DL (8.5-10.1) 7.7 MG/DL (8.5-10.1) Alkaline Phosphatase 334 U/L (45-117) 284 U/L (45-117) Aspartate Amino Transf (AST/SGOT) 768 U/L (15-37) 509 U/L (15-37) Alanine Aminotransferase (ALT/SGPT) 505 U/L (10-53) 398 U/L (10-53) Total Bilirubin 1.2 MG/DL (0.2-1.0) 1.1 MG/DL (0.2-1.0) Estimat Glomerular Filtration Rate 52 ML/MIN (>89) 76 ML/MIN (>89) Iron Level 197 MCG/DL (50-170) Total Iron Binding Capacity 213 MCG/DL (250-450) Percent Iron Saturation 92.6 % (20-50) Ferritin 2830 NG/ML (8-252) Blood Urea Nitrogen 4 MG/DL (7-18) Potassium Level 3.4 MEQ/L (3.5-5.1) Chloride Level 109 MEQ/L (98-107) Ammonia 72 MCMOL/L (11-32) Test 10/03/17 14:24 10/04/17 06:24 10/04/17 12:15 White Blood Count 2.0 TH/MM3 (4.0-11.0) 2.2 TH/MM3 (4.0-11.0) Red Blood Count 2.95 MIL/MM3 (4.00-5.30) 2.43 MIL/MM3 (4.00-5.30) Hemoglobin 9.8 GM/DL (11.6-15.3) 8.3 GM/DL (11.6-15.3) Hematocrit 29.5 % (35.0-46.0) 24.6 % (35.0-46.0) Platelet Count 105 TH/MM3 (150-450) 91 TH/MM3 (150-450) Neutrophils # (Auto) 1.1 TH/MM3 (1.8-7.7) 1.2 TH/MM3 (1.8-7.7) Lymphocytes # (Auto) 0.7 TH/MM3 (1.0-4.8) 0.9 TH/MM3 (1.0-4.8) Mean Corpuscular Volume 101.4 FL (80.0-100.0) Mean Corpuscular Hemoglobin 34.3 PG (27.0-34.0) Monocytes (%) (Auto) 8.8 % (0.0-8.0) Platelet Estimate LOW (NORMAL) Target Cells 1+ (NORMAL) Blood Urea Nitrogen 5 MG/DL (7-18) Total Protein 5.6 GM/DL (6.4-8.2) Albumin 2.6 GM/DL (3.4-5.0) Calcium Level 7.1 MG/DL (8.5-10.1) Alkaline Phosphatase 266 U/L (45-117) Aspartate Amino Transf (AST/SGOT) 421 U/L (15-37) Alanine Aminotransferase (ALT/SGPT) 353 U/L (10-53) Chloride Level 110 MEQ/L (98-107) Estimat Glomerular Filtration Rate 83 ML/MIN (>89) Protein Corrected Calcium 7.9 MG/DL (8.5-10.1) Imaging Last Impressions Barium Enema w/Air Contrast 10/03/17 0000 Signed Impressions: Service Date/Time: Tuesday, October 03, 2017 15:01 - CONCLUSION: 1. No polyp or mass is identified within the colon. 2. Cecum is not optimally visualized but no definite abnormality is seen in this area. Allan Bills MD PE at Discharge GENERAL: This is a well-nourished, well-developed patient, in no apparent distress. CARDIOVASCULAR: Regular rate and regular rhythm without murmurs, gallops, or rubs. RESPIRATORY: Clear to auscultation. Breath sounds equal bilaterally. No wheezes , rales, or rhonchi. GASTROINTESTINAL: Abdomen soft, non-tender, nondistended. Normal, active bowel sounds MUSCULOSKELETAL: Extremities without clubbing, cyanosis, or edema. NEURO: Alert & Oriented x4 to person, place, time, situation. Moves all ext x4 Hospital Course patient was admitted with epigastric pain and elevated LFT's. she received acetylcysteine and evaluated by GI. she underwent EGD with normal esophagus, gastric bypass surgery-otherwise normal. LFT's trended down. she will have a follow-up with her PCP and GI as outpatient. she was found to have pancytopenia -likely due to alcohol- she was advised to stop drinking. will repeat the CBC within the next week. her BP was controlled during this hospitalization -off her BP meds. she wants to hold off on her BP meds for now- she was advised to monitor her BP trend and have a close follow-up with her PCP. Pt Condition on Discharge: Fair Discharge Disposition: Discharge Home Discharge Time: <= 30 minutes Discharge Instructions DIET: Follow Instructions for: Heart Healthy Diet Activities you can perform: Regular-No Restrictions Follow up Referrals: Gastroenterology PCP Follow-up New Medications: Tramadol (Ultram) 50 Mg Tab 50 MG PO Q12HR PRN for PAIN, #10 TAB 0 Refills Multivitamin with Folic Acid (Thera Tablet) 400 Mcg Tablet 1 TAB PO DAILY for vitamin for 30 Days, #30 TAB 0 Refills Thiamine HCl (Gnp Vitamin B-1) 100 Mg Tab 100 MG PO DAILY for vitamin for 30 Days, #30 TAB 0 Refills Continued Medications: Levothyroxine (Levothyroxine) 125 Mcg Tab 125 MCG PO DAILY for Thyroid, #30 TAB 0 Refills Omeprazole (Omeprazole) 20 Mg Tab 20 MG PO BID, #30 TAB 0 Refills Venlafaxine (Effexor) 25 Mg Tab 25 MG PO Q12H, #60 TAB 0 Refills Discontinued Medications: Hydrochlorothiazide (Hydrochlorothiazide) 12.5 Mg Cap 12.5 MG PO DAILY, #30 CAP 0 Refills Losartan (Losartan) 50 Mg Tab 50 MG PO DAILY for Blood Pressure Management, #30 TAB 0 Refills Roxana Rock MD Oct 04, 2017 12:26
--- NOTE | 2017-10-04 13:43 | HHI.GIFU ---
Subjective Remarks Pt sitting up in bed, eager to go home. Some epigastric TTP. No bleeding. (Annamarie Mensah) Objective Vitals I&O Vital Signs Date Time Temp Pulse Resp B/P (MAP) Pulse Ox O2 Delivery O2 Flow Rate FiO2 10/04/17 12:00 97.8 99 18 117/84 (95) 99 10/04/17 08:00 97.0 87 18 113/71 (85) 97 10/04/17 04:00 97.5 96 16 90/62 (71) 95 10/04/17 00:00 98.0 89 16 113/84 (94) 99 10/03/17 20:00 97.8 101 18 120/74 (89) 97 10/03/17 16:00 98.4 87 18 116/80 (92) 100 10/03/17 13:44 98.3 87 20 113/73 (86) 100 I/O 10/03/17 10/03/17 10/03/17 10/04/17 10/04/17 10/04/17 07:00 15:00 23:00 07:00 15:00 23:00 Intake Total 0 ml 0 ml 870 ml 500 ml Balance 0 ml 0 ml 870 ml 500 ml Intake Oral 0 ml 0 ml 720 ml 500 ml Other 150 ml # Voids 1 5 2 1 # Bowel Movements 2 0 Laboratory Laboratory Tests Test 10/03/17 14:24 10/04/17 06:24 10/04/17 12:15 White Blood Count 2.0 2.2 Red Blood Count 2.95 2.43 Hemoglobin 9.8 8.3 8.5 Hematocrit 29.5 24.6 25.6 Mean Corpuscular Volume 100.0 101.4 Mean Corpuscular Hemoglobin 33.3 34.3 Mean Corpuscular Hemoglobin Concent 33.3 33.8 Red Cell Distribution Width 14.4 14.4 Platelet Count 105 91 Mean Platelet Volume 7.8 7.8 Neutrophils (%) (Auto) 56.1 51.7 Lymphocytes (%) (Auto) 34.5 38.3 Monocytes (%) (Auto) 8.0 8.8 Eosinophils (%) (Auto) 0.8 0.6 Basophils (%) (Auto) 0.6 0.6 Neutrophils # (Auto) 1.1 1.2 Lymphocytes # (Auto) 0.7 0.9 Monocytes # (Auto) 0.2 0.2 Eosinophils # (Auto) 0.0 0.0 Basophils # (Auto) 0.0 0.0 CBC Comment DIFF FINAL AUTO DIFF Differential Comment AUTO DIFF CONFIRMED Platelet Estimate LOW Platelet Morphology Comment NORMAL Target Cells 1+ Blood Urea Nitrogen 5 Creatinine 0.76 Random Glucose 81 Total Protein 5.6 Albumin 2.6 Calcium Level 7.1 Alkaline Phosphatase 266 Aspartate Amino Transf (AST/SGOT) 421 Alanine Aminotransferase (ALT/SGPT) 353 Total Bilirubin 1.0 Sodium Level 143 Potassium Level 3.5 Chloride Level 110 Carbon Dioxide Level 25.8 Anion Gap 7 Estimat Glomerular Filtration Rate 83 Protein Corrected Calcium 7.9 Date/Time Source Procedure Growth Status 10/02/17 12:00 Stool Stool Cryptosporidium Exam Pending Received 10/02/17 12:00 Stool Stool Giardia Antigen (GLADIS) Pending Received Physical Exam HEENT: PERRL; normocephalic; atraumatic; no jaundice. CHEST: CTA CARDIAC: RRR ABDOMEN: Soft, nondistended,mild epigastric TTP; no hepatosplenomegaly; bowel sounds are present in all four quadrants. EXTREMITIES: No clubbing, cyanosis, or edema. SKIN: Normal; no rash; no jaundice. TELECOMMUNICATIONS ENGINEER: No focal deficits; alert and oriented times three. (Annamarie Mensah [facility]) Assessment and Plan Plan Assessment Elevated LFTs- likely secondary to ETOH abuse and acetaminophen toxicity- CT abdomen/pelvis W/IV contrast (10/01) --> Markedly enlarged fatty liver. Tiny 3mm upper pole left renal cyst. No acute inflammatory process. ALT-625 AST-1192 Alk phos-403 Tbili-1.4- given history and labs would suspect acute hepatitis related to ETOH and acetaminophen use- s/p acetylcystein admin. on lactulose. iron 197H, TIBC 213L, sat 92.6H, ferritin 2830H will check hfe. hep panel neg. rest of w/u pending. LFTs trending down. Epigastric pain- History of gastritis- s/p EGD found evidence gastric bypass. Diarrhea- chronic, with fecal urgency and incontinence- BRB in stool, one episode last week. c diff neg. incomplete colonoscopy d/t tortuous colon, found mild diverticulosis Ba enema neg. anemia - hgb dropped today to 8.3, 8.5 on rck no bleeding Plan - Lactulose 30mL BID - Hfe - Monitor labs - Supportive care - ok to d/c from GI standpoint after Hfe labs drawn - f/u with GI in 1 week Pt seen and examined by myself and Dr. Higginbotham and this note is written on his behalf (Annamarie Mensah) Plan Patient was seen and examined, agree with above-noted, no abdominal pain at this time, she has what looked like cirrhosis questionable geology patient drink alcohol but also has high iron saturation so we will order gene evaluation for hemochromatosis she will need to follow up as an outpatient with gastroenterology of choice in 1 week she was instructed to avoid alcohol completely thank you (Manny Higginbotham MD) Annamarie Mensah Oct 04, 2017 13:43 Mnany Higginbotham MD Oct 04, 2017 13:55
[2017-10-04] MEDS ORDERED: MORPHINE SULFATE 4 MG/ML INJ IV PUSH PRN (15:15)
[2017-10-04] MEDS: SODIUM CHLORIDE 0.9% FLUSH 10 ML FLUSH IV FLUSH PRN (15:27)
== END 2017-10-04 16:48 | disposition home or self-care (01) | DRG 392 ==
LOC: NEDDLT 00:20 → N06B 00:30
PROVIDERS: ADMIT Internal Medicine; ATTEND Internal Medicine
PROC: 0DJ08ZZ Inspection of Upper Intestinal Tract, Via Natural or Artificial Opening Endoscopic (ICD-10-PCS; principal; 2017-10-03 13:15)
PROC: 0DJD8ZZ Inspection of Lower Intestinal Tract, Via Natural or Artificial Opening Endoscopic (ICD-10-PCS; 2017-10-03 13:15)
DX: R10.13 Epigastric pain (principal); D61.818 Other pancytopenia; K76.0 Fatty (change of) liver, not elsewhere classified; I10 Essential (primary) hypertension; E03.9 Hypothyroidism, unspecified; F10.10 Alcohol abuse, uncomplicated; Z98.82 Breast implant status; K52.9 Noninfective gastroenteritis and colitis, unspecified; M25.512 Pain in left shoulder; Z98.84 Bariatric surgery status; R32 Unspecified urinary incontinence; R15.2 Fecal urgency; Z87.891 Personal history of nicotine dependence; N28.1 Cyst of kidney, acquired; K57.30 Diverticulosis of large intestine without perforation or abscess without bleeding; K64.8 Other hemorrhoids
CPT/HCPCS: 74280; 80053; 80074; 81256; 82103; 82140; 82390; 82728; 83520; 83540; 83550; 85014; 85018; 85025; 85610; 86038; 86255; 87328; 87329; 87493; 87506; J0132; J1200; J2270; J7030; J7060; J7070